=== PATIENT | female | born 1990 | race Caucasian/White ===

== ENCOUNTER 2025-01-20 15:52 | Outpatient (CLI) | payer BC, SELFPAY ==
[2025-01-20 19:23] LABS: Chlamydia DNA Amplified* NOT DETECTED (No Detected); GC DNA Amplified* NOT DETECTED (No Detected)
[2025-01-23 17:09] LABS: HPV Source Cervix; HPV, High Risk by TMA Not Detected
== END 2025-01-20 15:53 | disposition home or self-care (01) ==
PROVIDERS: Visit Provider Registered Nurse
DX: Z34.91 Encounter for supervision of normal pregnancy, unspecified, first trimester (principal); Z3A.12 12 weeks gestation of pregnancy; Z12.4 Encounter for screening for malignant neoplasm of cervix; O26.891 Other specified pregnancy related conditions, first trimester; Z01.31 Encounter for examination of blood pressure with abnormal findings
CPT/HCPCS: 82565; 82570; 83020; 83021; 84156; 84450; 84460; 84520; 85660; 86592; 86703; 86704; 86706; 86762; 86787; 86803; 86850; 86900; 86901; 87086; 87340; 87491; 87591; 87624; 87625; 88141; 88142

== ENCOUNTER 2025-01-28 12:05 | Outpatient (CLI) | payer BC, SELFPAY | END 2025-01-28 12:06 | disposition home or self-care (01) | LOC: NFLDREF 02-03 05:30 | PROVIDERS: Visit Provider Registered Nurse | DX: O12.11 Gestational proteinuria, first trimester (principal); Z3A.12 12 weeks gestation of pregnancy | CPT/HCPCS: 82570; 84156 ==

== ENCOUNTER 2025-03-15 12:53 | Outpatient (CLI) | payer BC, SELFPAY ==
--- NOTE | 2025-03-15 13:00 | CRLHL7_ITS ---
For Patients: As a result of the Century Cures Act, medical imaging exams and procedure reports are released immediately into your electronic medical record. You may view this report before your referring provider. If you have questions, please contact your health care provider. OBSTETRICAL ULTRASOUND ??? ANATOMY SURVEY, 03/15/2025 INDICATION: Supervision of normal . anatomy survey. CLINICAL HISTORY: LMP: 08/01/1210/25/2024 YASMIN by LMP: 08/01/2025 Gestational age: 20 weeks 1 day TECHNIQUE: Real-time ceron-scale transabdominal imaging of the fetus and pelvis was performed. FINDINGS: position: Vertex Cervix: Visualized Technique: Transabdominal Length of closed cervix: 4.9 cm Placenta position: Posterior Technique: Transabdominal Placenta tip to internal os: 6.3 cm Umbilical cord: 3-vessel cord Placental insertion: Central Amniotic fluid: 4.4 cm SDP (greater than/equal to 2 to less than 8 cm) ANATOMY SURVEY: Observed Structures Cerebellum: Yes Cisterna magna: Yes Nuchal fold: Yes Lateral ventricle: Yes CSP: Yes Midline falx: Yes Choroid plexus: Yes Spine: Yes Stomach: Yes Abdominal cord insert: Yes Urinary bladder: Yes Kidneys: Yes Diaphragm: Yes Nose/lips: Yes Orbital view: Yes Profile: Yes Upper extremities: Yes Lower extremities: Yes Hands: Yes Feet: Yes 4-chamber heart: Yes LVOT: Yes RVOT: Yes 3VV: Yes 3VTV: Yes BIOMETRY BPD: 4.6 cm, 20 weeks 0 days, 45% HC: 17.4 cm, 20 weeks 0 days, 34% AC: 15.0 cm, 20 weeks 2 days, 48% FL: 3.2 cm, 20 weeks 2 days, 39% FL/AC: 21.52% HC/AC ratio: 1.16 heart rate: 145 bpm age by this ultrasound: 20 weeks 2 days YASMIN by this ultrasound: 07/31/2025 Estimated weight: 334.97 grams (0 pounds 12 ounces) Percentile by YASMIN: 45% IMPRESSION: 1) Concordance of clinical and sonographic dating. 2) Normal anatomic survey. BOAZ KOHLI M.D. [email or web address] Transcribed: 5:[address]/Dictated by: Boaz Kohli MD @ 03/15/2025 4:28:00 PM (Electronically Signed)
== END 2025-03-15 12:54 | disposition home or self-care (01) ==
LOC: US 12:54
PROVIDERS: Visit Provider Midwife
DX: Z34.92 Encounter for supervision of normal pregnancy, unspecified, second trimester (principal); Z3A.20 20 weeks gestation of pregnancy
CPT/HCPCS: 76805

== ENCOUNTER 2025-05-13 08:36 | Outpatient (CLI) | payer BC, SELFPAY | END 2025-05-13 08:37 | disposition home or self-care (01) | LOC: NFLDREF 05-15 08:37 | PROVIDERS: Visit Provider Advanced Practice Midwife | DX: Z34.93 Encounter for supervision of normal pregnancy, unspecified, third trimester (principal); Z3A.28 28 weeks gestation of pregnancy | CPT/HCPCS: 86592 ==

== ENCOUNTER 2025-05-19 08:12 | Outpatient (CLI) | payer BC, SELFPAY | END 2025-05-19 08:13 | disposition home or self-care (01) | LOC: NFLDREF 05-20 02:50 | PROVIDERS: Visit Provider Advanced Practice Midwife | DX: R73.09 Other abnormal glucose (principal) | CPT/HCPCS: 82951; 82952 ==

== ENCOUNTER 2025-06-24 09:10 | Outpatient (CLI) | payer BC, SELFPAY | END 2025-06-24 09:11 | disposition home or self-care (01) | LOC: NFLDREF 06-29 09:08 | PROVIDERS: Visit Provider Advanced Practice Midwife | DX: O99.013 Anemia complicating pregnancy, third trimester (principal); D64.9 Anemia, unspecified; Z3A.34 34 weeks gestation of pregnancy | CPT/HCPCS: 82728 ==

== ENCOUNTER 2025-07-08 14:42 | Outpatient (CLI) | payer BC, SELFPAY ==
[2025-07-09 13:57] LABS: Strep B DNA Probe Negative (Negative)
[2025-07-09 14:03] LABS: Strep B Susceptibility Needed? No
== END 2025-07-08 14:43 | disposition home or self-care (01) ==
LOC: NFLDREF 14:42
PROVIDERS: Visit Provider Midwife
DX: Z34.93 Encounter for supervision of normal pregnancy, unspecified, third trimester (principal)
CPT/HCPCS: 87081; 87653

== ENCOUNTER 2025-07-27 01:51 | Inpatient (IN) | payer BC, SELFPAY ==
[2025-07-27] VITALS (17 sets, daily range): BP systolic 131–149; BP diastolic 66–87; PULSE 63–91; RESP 12–18; TEMP 36.4–37.3; O2SAT 97–98
--- NOTE | 2025-07-27 02:10 | W.PM.LDBA ---
Subjective History of Present Illness Narrative: Mahsa is a 34 yo at 39 2/7 weeks gestation being admitted to Labor and Delivery for spontaneous onset of labor. She reports contractions started yesterday morning but were irregular throughout the day. Around supper she noted they had become closer and were increasing in intensity. She was able to rest some during the day. She arrived to labor and delivery around 130 when she felt they were getting intense. She feels her bag of water is still intact. She endorses movement and denies any vaginal bleeding. She is supported in labor by her , Dontae. Her full history and physical was dictated by MARGO Mota on 07/15/2025. Please see this for details. Specific Issues/Plans G2P 1001 Partner: Dontae Son Gregory. It is a girl. Transfer at 12.3 from [facility], only had confirmation visit without labs H&P completed by Viridiana Freed on 07/15/25? #Proteinuria: pre E labs performed due to BP of 130/74 at first OB visit. P/C ratio elevated at 0.37. 24 hour urine result. P/C ratio: 0.29 Total protein 24 hour: 365 Referral to nephrology, has appointment 03/16-completed. Labs repeated included BMP (normal), UA (normal) and Urine P/C Ratio: 0.4mg. Requested redraw of BMP, UA and urine P/C ratio Mid April.-Already scheduled to be drawn at [facility] with F/U the following week. Per patient seen in April, she reports no additional follow-up needed, records requested. Seen 05/18/2025. p/c ratio 0.4. No additional follow-up needed per notes, stable renal function and BP along with urine protein/creatine ratio show no proteinuria. # Vanishing twin # Failed 1 hr GTT (166) 3 hr GTT, PASSED; 1 abnormal value #Anemia in 3rd trimester 10.4 recommended oral iron QOD and increase iron rich foods consider CBC on admit Ultrasounds: Dating US at [facility] (12/22/24): Two gestational sacs with development identified in only one of them. Patient sent for formal ultrasound in Radiology. Formal 1st trimester US (12/30/24): There is a gestational sac present demonstrating appropriate interval growth with current measurements of 9w5d, YASMIN 07/30/25. Cardiac activity documented at 178bpm. A separate hypoechoic fluid collection is present adjacent to the normal viable gestation, appearance of a gestational sac with only a small focus of internal echogenic tissue. No identified pole or yolk sac. 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 Ultrasound follow up can be obtained for further confirmation. Anatomy US (03/15/25): [facility]. 1)Concordance of clinical and sonographic dating. 2)Normal anatomic survey. ? Flu: declines Covid: declines for now Tdap: 05/27/2025 RSV: N/A OB - Problem Based A/P Additional Plan (1) Pain during labor: Status: Acute (2) Spontaneous onset of labor: Status: Acute (3) Anemia affecting in third trimester: Status: Acute (4) 39 weeks gestation of : Status: Acute Plan ASSESSMENT:? 34 yo at 39 2/7 weeks gestation? complicated by:?#Proteinuria: pre E labs performed due to BP of 130/74 at first OB visit, vanishing twin, failed 1 hour gct, anemia Labor type: Spontaneous, Active labor? Category 2 FHR pattern.?? Labor complicated by: None? GBS negative? ? PLAN:? 1. Routine intrapartum cares as ordered. Continue with expectant management? 2. Monitoring per policy, continuous. If tracing improves and is Cat 1 for more than 30 minutes, can consider intermittent monitoring. 3. Planning unmedicated . Candidate for analgesia of choice, if desired. 4. Patient encouraged to reposition and ambulate to promote physiologic labor and .? 5. Anticipate ? Delivery/Labor/Induction Plan Plan: expectant management OB Exam Physical Exam Vital signs: Pulse BP Pulse Ox 63 134/74 97 07/27/25 01:39 07/27/25 01:39 07/27/25 01:39 Narrative: Vitals Reviewed Constitutional:? Alert and oriented x3 HEENT:? Normocephalic, atraumatic Neck:? Supple Lungs:? Clear to auscultation bilaterally Heart:? Regular rate and rhythm, no murmur, rub or gallop Abdomen:? Soft, nontender, and gravid. Vertex by Samson's, confirmed with cervical exam. Extremities:? No edema or erythema Cervix: 5 cm/90%/-1 station/vertex NST: 150 bpm/moderate variability/15x15 accelerations/variable decelerations/contractions every 2-3 minutes Detailed Labor and Delivery Exam Patient Gravid: yes
[2025-07-27] MEDS: LIDOCAINE 1 % PF 30 ML INJECTION (04:02)
--- NOTE | 2025-07-27 04:22 | W.PM.OBVAGDE ---
OB Procedure Vag Delivery Mother Details Mother Details: The patient is a 34 year-old, 2, now Para 2, admitted on 07/27/25 at 39 2/7 weeks gestation in spontaneous labor. : 2 Para: 2 Weeks Gestation: 39.2 Admission Date: 07/27/25 Additional Details Amniotic Membrane Status: SROM Amniotic Membrane Rupture Date: 07/27/25 Amniotic Membrane Rupture Time: 02:37 Amniotic Membrane Fluid Description: Clear Analgesia/Anesthesia Type: None Waterbirth: No Pitcoin: No (Declined AMTSL) Intrapartal Events: Precipitous Labor <3 Hrs Labor Onset: 01:30 Complete: 03:30 Pushin:30 Heart: heart tones during second stage were category II with variable decelerations present. Moderate variability and accelerations also present throughout the 2nd stage. Delivery Details Delivery Date: 07/27/25 Delivery Time: 03:41 Route of delivery: Infant Gender: Female Viability: Alive; Heart Rate Present Position at Delivery: OA Delivery Details: Patient was admitted for spontaneous onset of labor and progressed normally. SROM noted at 0237 with clear fluid. Patient was assumed complete with pushing at 0330 when she began involuntarily pushing. of a viable female at 0341 in hands and knees on floor mat. Vertex delivered OA. Tight Nuchal x1 with cord wrapped around the body, reduced after delivery of infant body. No shoulder. Body delivered easily and without incident. Infant passed between mothers legs to RN and mother assisted to sitting. Infant then placed in mothers arms. Cord was clamped and cut at > 5 minutes. APGARS were 7 at one minute and 9 at five minutes respectively. Mouth was bulb suctioned. Intact placenta with a 3 vessel cord delivered spontaneously at 0355. Fundus firm. Perineal 2nd degree identified and repaired in typical fashion. QBL 150 cc. Mother and baby stable; mother plans to breastfeed. weight pending. 1 Minute Interval Total Score: 7 5 Minute Interval Total Score: 9 Additional Details Shoulder Dystocia: No Placenta Delivery Time: 03:55 Placental Delivery Description: Spontaneous Delivery repair: Vicryl Procedure Done: Global Blood Loss: 150 Laceration: Perineal - 2nd Degree Blood Loss Measurement Type: QBL Bakri Used: No Sponge/Need Count Correct: Yes Cord Vessel Description: 3 Vessels, Nuchal Cord (x1), Tight, Reduced and Around Body (x1) Event Summary Status: Mother and were stable after delivery. Patient has had two elevated BP's in recovery but has not met criteria for GHTN. Will continue to monitor and evaluate as needed. Disposition: floor
[2025-07-27] MEDS: IBUPROFEN 600 MG TABLET PO (04:48)
[2025-07-27] MEDS: DOCUSATE SODIUM 100 MG CAPSULE PO (11:44)
[2025-07-27 21:08] LABS: Hematocrit* 29.2 % (33.0-51.0); Hemoglobin* 9.9 gm/dL (12.0-16.0); Mean Corpuscular HGB Conc 34 gm/dL (32-36); Mean Corpuscular Hemoglobin 29 pg (26-34); Mean Corpuscular Volume 86 fL (80-100); Red Blood Count* 3.41 m/uL (4.00-5.20); White Blood Count* 15.28 K/uL (4.50-11.00)
[2025-07-27 21:11] LABS: Slide Review Reflex No
[2025-07-27 21:25] LABS: Blood Urea Nitrogen* 9 mg/dL (5-24); Creatinine* 0.9 mg/dL (0.5-1.5); Estimated Glomerular Filt Rate 87 ml/min
[2025-07-27 21:26] LABS: Alanine Aminotransferase* 16 U/L (4-35); Aspartate Amino Transferase* 28 U/L (12-35)
[2025-07-28] VITALS (9 sets, daily range): BP systolic 109–151; BP diastolic 78–89; PULSE 69–87; RESP 16–18; TEMP 36.3–36.8; O2SAT 96–98
--- NOTE | 2025-07-28 07:41 | PM.OBPNVD1 ---
OB - PN:Subj Subjective Date Seen: 07/28/25 Narrative: Mahsa is a 34 y.o. who was admitted to L & D for labor.? She had an uncomplicated NVD.? ?? she has persistent elevated blood pressures in the mild range and has met criteria for gestational hypertension. Recommended she start on nifedipine 30mg today and stay overnight to watch blood pressures. Plan repeat labs this morning due to elevated creatinine at 0.9 last evening. The patient feels well.? The pain is well controlled with current medications.? She has no new complaints.? She is breast feeding and reports things are going well although baby is frequently sleepy at the breast.? the patient has done well.? Vitals have been stable.? She has remained afebrile.? Has a good appetite, is tolerating a general diet.? She is voiding without difficulty.? She is passing gas and has not had a bowel movement.? She is ambulating and denies any dizziness.? Has Small amount of rubra lochia.? OB - PN: Obj Exam Physical Exam: Vital signs: Temp Pulse Resp BP Pulse Ox O2 Del Method 98.2 F 78 18 133/89 98 Room Air 07/28/25 04:26 07/28/25 04:26 07/28/25 04:26 07/28/25 04:39 07/28/25 04:26 07/28/25 04:26 Narrative: GENERAL APPEARANCE:? normal affect, alert, no distress? MOOD:? appropriate? HEENT: normocephalic, neck supple, full ROM? CHEST:? Symmetrical chest wall movement.? Normal respiratory effort.? Clear to auscultation ? HEART:? regular rate and rhythm? ABDOMEN:? soft, non-tender. Uterine fundus is firm, at Umbilicus, Midline and is appropriate for the stage of recovery.? Bowel sounds present.? PERINEUM:? mild edema of the perineum, there is a 2nd degree laceration that is healing well.? EXTREMITIES:? normal and trace edema? OB - PN: Obj Data Labs Labs: Laboratory Results - last 24 hr 07/27/25 21:00 WBC 15.28 H RBC 3.41 L Hgb 9.9 L Hct 29.2 L MCV 86 MCH 29 MCHC 34 Plt Count 204 BUN 9 Creatinine 0.9 Estimated GFR 87 AST 28 ALT 16 OB - PN: A/P Delivery Assessment and Plan (1) Anemia affecting in third trimester: Status: Acute (2) Gestational hypertension: Status: Acute (3) care and examination immediately after delivery: Status: Acute (4) Lactating mother: Status: Acute (5) (normal spontaneous vaginal delivery): Status: Acute Plan day: 1 Plan: routine care Comments: G 2 P 2 status post uncomplicated NVD??? 1.? Continue route PP cares? 2.? .? May see if desired? 3.? Anticipate discharge home tomorrow? 4. Gestational hypertension start nifedipine today, repeat labs this AM
[2025-07-28] MEDS: ACETAMINOPHEN 500 MG TABLET 1000 MG PO ×3 (08:59→22:04)
[2025-07-28] MEDS: DOCUSATE SODIUM 100 MG CAPSULE PO (09:00)
[2025-07-28 09:11] LABS: Hematocrit* 32.5 % (33.0-51.0); Hemoglobin* 11.0 gm/dL (12.0-16.0); Mean Corpuscular HGB Conc 34 gm/dL (32-36); Mean Corpuscular Hemoglobin 29 pg (26-34); Mean Corpuscular Volume 87 fL (80-100); Red Blood Count* 3.74 m/uL (4.00-5.20); Slide Review Reflex No; White Blood Count* 13.04 K/uL (4.50-11.00)
[2025-07-28 09:26] LABS: Blood Urea Nitrogen* 9 mg/dL (5-24); Creatinine* 0.7 mg/dL (0.5-1.5); Estimated Glomerular Filt Rate 118 ml/min
[2025-07-28 09:27] LABS: Alanine Aminotransferase* 16 U/L (4-35); Aspartate Amino Transferase* 30 U/L (12-35)
[2025-07-28] MEDS: IBUPROFEN 600 MG TABLET PO ×3 (11:50→23:38)
[2025-07-29] MEDS: ACETAMINOPHEN 500 MG TABLET 1000 MG PO (04:10)
[2025-07-29 04:11] VITALS: BP 126/77; PULSE 70; RESP 16; TEMP 36.5; O2SAT 98
[2025-07-29] MEDS: IBUPROFEN 600 MG TABLET PO (05:52)
[2025-07-29 07:46] VITALS: BP 121/83; PULSE 71; RESP 16; TEMP 36.4; O2SAT 99
[2025-07-29] MEDS: DOCUSATE SODIUM 100 MG CAPSULE PO (09:29)
--- NOTE | 2025-07-29 10:05 | P.DS_ITS ---
DS: Providers Provider Time Seen by Provider: 08:15 Date Seen: 07/29/25 Date of admission: 07/27/25 01:51 Primary care physician: Not a Local Provider Admitting Clinician: Gisela Chávez CNM Attending Physician on discharge: Gisela Chávez CNM Date of Discharge: 07/29/25 DS: Diagnosis Discharge Diagnosis (1) care and examination immediately after delivery: Status: Acute (2) Lactating mother: Status: Acute (3) Gestational hypertension: Status: Acute (4) Anemia affecting in third trimester: Status: Acute Exam Narrative: Exam Narrative: Constitutional: no apparent distress Respiratory: no labored breathing, lung sounds clear to auscultation Cardiovascular: heart rate and rhythm, no murmur heard Extremities: full sensation, +1 edema. No clonus. Weight: up 1 lb. from admission weight Abdomen: soft, non-tender. Fundus firm 2cm below umbilicus. Appropriate for this stage of healing Mood: calm, cooperative, appropriate Const: Vital Signs, click to edit/add: Vital Signs - 24 hr 07/28/25 11:55 07/28/25 16:08 07/28/25 20:01 Temperature 97.4 F L 97.9 F 97.9 F Pulse Rate [Pulse Oximeter] 69 75 83 Respiratory Rate 16 18 16 Blood Pressure [Ri ght Arm] 125/82 120/78 129/80 Pulse Oximetry 97 97 97 Oxygen Delivery Me thod Room Air Room Air 07/28/25 23:58 07/29/25 04:11 07/29/25 07:46 Temperature 97.9 F 97.7 F 97.6 F Pulse Rate [Pulse Oximeter] 79 70 71 Respiratory Rate 16 16 16 Blood Pressure [Ri ght Arm] 109/78 126/77 121/83 Pulse Oximetry 96 98 99 Oxygen Delivery Me thod Room Air Room Air Room Air OB - DS: Summary Hospital Course Hospital Course: Mahsa is a 34 y.o. G 2 now P 2 who was admitted to L & D for spontaneous onset of labor. ?She had a NVD that was uncomplicated. she developed gestational hypertension. Pre-eclampsia labs all normal. Nifedipine was started 07/28. Vitals have been stable since starting medication.? She has remained afebrile. The patient feels well and pain is controlled.?She is breast feeding and reports things are going well.? Has a good appetite, is tolerating a general diet. ?She is voiding without difficulty.? She is unsure if passing gas and has not had a bowel movement.?She does have active bowel sounds. She is ambulating and denies any dizziness.? Has small amount of rubra lochia. Problems: GHTN Discharge home with baby.? Follow up in 2 weeks and 6 weeks.? , may see if needed? Hgb 11.0 GHTN diagnosed by elevated BP greater than 4 hours apart Labs WNL Discharge home with BP cuff and monitor blood pressure twice daily at home. Call with blood pressure >140/90 Follow up in 3-5 days?for blood pressure Call for signs/symptoms of preeclampsia? For pain control of perineum, breast and pelvic pain, take 600 mg Ibuprofen every 6 hours as needed by mouth or 1000 mg acetaminophen (Tylenol) every 6 hours by mouth as needed. You can alternate these so you are taking something every 3 hours as needed. A heating pad can also be used for your abdomen or breasts. You may also take docusate sodium up to twice daily to soften your stools and help to prevent constipation. You may wean off of it when your stools return to normal.? I,?Gisela Chávez APRN, [facility], was present for visit and have reviewed and agree with documentation by the Certified Nurse Midwifery Student. Peripartum Data delivery method: Vaginal Episiotomy description: None complications: other (hypertension) [place] Infant Gender: Female Infant Discharge Plan: Home Status at Discharge Functional status at discharge: independent ambulation Overall status at discharge: patient is progressing back to baseline Time Spent with Patient Time attestation: Total time spent providing and/or coordinating discharge services: Time spent: Less than 30 minutes Discharge Plan Discharge Disposition: Home, Self-Care Date of Admission: 07/27/25 01:51 Attending Provider on Discharge: Gisela Chávez Primary Care Provider: Provider,Not a Local Condition: Stable Anticipated Discharge Date/Time: 07/29/25 12:00 Discharge Medications: New acetaminophen 500 mg Tablet 1,000 mg PO Q6H PRNQty: 0 0RF docusate sodium 100 mg Capsule 100 mg PO DAILY Qty: 0 0RF nifedipine 30 mg Tablet Extended Release 30 mg PO DAILY Qty: 30 1RF ibuprofen 600 mg Tablet 600 mg PO Q6H PRNQty: 0 0RF Continued calcium carbonate-vitamin D3 600 mg-25 mcg (1,000 unit) capsule 1 cap PO DAILY DHA 200 mg capsule 1 mg PO DAILY ferrous sulfate [FeroSul] 325 mg (65 mg iron) tablet 325 mg PO QDAY Discharge Orders: Discharge Order (Routine); Ordered 07/29/25 Ordered By: Gisela Chávez Consulting provider completed their portion of the discharge: Yes Patient Education: OB Over the Counter Medication Information, OB Vaginal/Breast Feeding Additional Instructions: Discharge instructions were reviewed with the patient including signs and symptoms of infection and home going medications Nothing vaginally for 6 weeks: no tampons or intercourse Off Work or School for 6 weeks [facility] for a BP check?3-5 days * Call with BP greater than or equal to 160/110 * Multiple readings of 140/90 for possible medication adjustment * Severe headache that doesn't improve after taking medications * Changes in vision, including temporary loss of vision, blurred vision, and/or light sensitivity * Upper abdominal pain (usually under ribs on the right side) 2-week visit: discuss infant feeding concerns, review control options and screen for anxiety/depression. 6-week visit for an annual exam. Follow up with provider in 3-5 days for blood pressure check, the [facility] will call to schedule this. Follow up with provider in 2-weeks for wellness check in and in 6-weeks for annual physical exam. Please call the [facility] to schedule those 2 appointments. consultation services are available to all mothers and babies for the first year after delivery.? To make an appointment, please call [phone]. Activity Level: Activity as Tolerated Discharge Diet: Regular Follow Up Appointments: Provider,Not a Local [Primary Care Provider, Family Practice] Forms: Patient Belongings, MyHealth Info Instructions
[2025-07-29 11:20] VITALS: BP 122/80; PULSE 79; RESP 16; TEMP 36.6; O2SAT 98
== END 2025-07-29 13:24 | disposition home or self-care (01) | DRG 560 ==
LOC: OB OUT 01:57 → OB 01:57
PROVIDERS: Advanced Practice Midwife; Admitting Provider Advanced Practice Midwife; Visit Provider Advanced Practice Midwife
DX: O99.02 Anemia complicating childbirth (principal); O13.5 Gestational [pregnancy-induced] hypertension without significant proteinuria, complicating the puerperium; O62.3 Precipitate labor; O70.1 Second degree perineal laceration during delivery; O12.14 Gestational proteinuria, complicating childbirth; D64.9 Anemia, unspecified; Z3A.39 39 weeks gestation of pregnancy; Z37.0 Single live birth
CPT/HCPCS: 36415; 82565; 84450; 84460; 84520; 85027; 86592; G0463; A9270; J2003